=== PATIENT | female | born 1985 | race Caucasian/White ===

== ENCOUNTER 2016-08-25 22:03 | Emergency (ER) | payer OTHER | END 2016-08-26 00:15 | disposition home or self-care (01) | LOC: ER 22:03 | DX: G43.909 Migraine, unspecified, not intractable, without status migrainosus (principal); R11.2 Nausea with vomiting, unspecified; F17.210 Nicotine dependence, cigarettes, uncomplicated; Z88.8 Allergy status to other drugs, medicaments and biological substances; Z88.6 Allergy status to analgesic agent; Z79.899 Other long term (current) drug therapy | CPT/HCPCS: 70450; 81025; 96372; 99283-25 ==

== ENCOUNTER 2016-10-12 21:05 | Emergency (ER) | payer OTHER | END 2016-10-12 23:16 | disposition home or self-care (01) | LOC: ER 21:05 | DX: G43.909 Migraine, unspecified, not intractable, without status migrainosus (principal); Z79.899 Other long term (current) drug therapy; Z88.8 Allergy status to other drugs, medicaments and biological substances | CPT/HCPCS: 80307; 96374; 96375; 99070; 99283-25; J7040 ==